=== PATIENT | female | born 1995 | race Caucasian/White ===

== ENCOUNTER 2022-05-25 14:59 | Emergency (ER) | payer OTHER ==
[2022-05-25 15:55] LABS: #Eosinphils 0.3 10x3/uL (0.0-0.5); #Monocytes 0.6 10x3/uL (0.0-1.1); #Neutrophils 5.9 10x3/uL (1.5-8.4); %Basophils 0.2 % (0.0-2.0); %Eosinophils 3.6 % (0.0-6.0); %Lymphocytes 23.6 % (18.0-47.0); %Monocytes 6.9 % (0.0-10.0); %Neutrophils 64.9 % (40.0-75.0); Hemoglobin 11.1 g/dL (12.0-15.5); Mean Corpuscular HGB CONC 33.3 g/dL (32.0-36.0); Mean Corpuscular Hemoglobin 28.9 pg (27.0-33.0); Mean Corpuscular Volume 86.7 fl (81.6-98.3); Mean Platelet Volume 11.8 fl (7.4-10.4); Platelet Count 177 10x3/uL (150-450); RBC Distribution Width 12.9 % (11.5-14.5); Red Blood Cell (RBC) Count 3.84 10x6/uL (3.90-5.03)
[2022-05-25 16:15] LABS: ALT (SGPT) 9 U/L (8-55); AST (SGOT) 14 U/L (5-34); Albumin 3.6 g/dL (3.5-5.0); Alkaline Phosphatase 59 U/L (40-110); Anion Gap 13 mmol/L (10-20); BUN (Urea Nitrogen) 6 mg/dL (7.0-18.7); Bilirubin, Total 0.4 mg/dL (0.2-1.2); Calc. Creatinine Clearance 0 mL/min (70-130); Calcium 8.7 mg/dL (7.8-10.44); Carbon Dioxide 19 mmol/L (22-29); Chloride 109 mmol/L (98-107); Estimated GFR 128; Globulin 2.2 g/dL (2.4-3.5); Glucose 83 mg/dL (70-105); Potassium 4.1 mmol/L (3.5-5.1); Protein, Total 5.8 g/dL (6.0-8.3); Sodium 137 mmol/L (136-145)
[2022-05-25 18:06] LABS: Bilirubin Neg (Negative); Blood, Urine Negative (Negative); Clarity Slightly Cloudy (Clear); Glucose, Urine (Dipstick) Normal (Negative); Ketone, Urine Negative (Negative); Leukocyte 500 (Negative); Nitrite Negative (Negative); Protein, Urine (Dipstick) Negative (Neg-Trace); Specific Gravity, Urine 1.005 (1.005-1.030)
[2022-05-25 18:28] LABS: RBC/HPF 0-3 HPF (0-3)
[2022-05-25 18:29] LABS: Bacteria/HPF 1+ HPF (None Seen)
== END 2022-05-25 19:36 | disposition home or self-care (01) ==
LOC: CSHERS 14:59
DX: N39.0 Urinary tract infection, site not specified (principal); I10 Essential (primary) hypertension; Z79.82 Long term (current) use of aspirin
CPT/HCPCS: 36415; 80053; 81003; 81015; 85025; 87086; 96360

== ENCOUNTER 2022-05-28 13:44 | Emergency (ER) | payer MEDICAID, OTHER ==
[2022-05-28] MEDS ORDERED: Tetracaine 0.5% PF 4 ML BOT ONE (14:48)
[2022-05-28] MEDS ORDERED: Fluorescein Opthalmic Strip ONE (14:48)
== END 2022-05-28 15:16 | disposition home or self-care (01) ==
LOC: CSHERS 13:44
DX: H10.9 Unspecified conjunctivitis (principal); I10 Essential (primary) hypertension
CPT/HCPCS: 99282

== ENCOUNTER 2022-06-16 19:38 | Emergency (ER) | payer MEDICAID, OTHER ==
[2022-06-16] MEDS ORDERED: Metoclopramide HCl 10 MG/2 ML VIAL ONE (20:50)
[2022-06-16] MEDS ORDERED: Magnesium 2 GM/50 ML BAG (IN WATER) ONE (20:50)
[2022-06-16] MEDS ORDERED: Acetaminophen 500 MG TAB ONE (20:50)
[2022-06-16 21:00] LABS: Bilirubin Neg (Negative); Blood, Urine Negative (Negative); Clarity Slightly Cloudy (Clear); Glucose, Urine (Dipstick) Normal (Negative); Ketone, Urine Negative (Negative); Leukocyte 500 (Negative); Nitrite Negative (Negative); Protein, Urine (Dipstick) Negative (Neg-Trace)
[2022-06-16 21:09] LABS: Bacteria/HPF Rare-Few HPF (None Seen); RBC/HPF 0-3 HPF (0-3); Squamous Epithelial 0-3 HPF (0-3)
[2022-06-16 21:43] LABS: #Eosinphils 0.2 10x3/uL (0.0-0.5); #Monocytes 0.6 10x3/uL (0.0-1.1); #Neutrophils 5.9 10x3/uL (1.5-8.4); %Basophils 0.2 % (0.0-2.0); %Eosinophils 1.8 % (0.0-6.0); %Lymphocytes 19.4 % (18.0-47.0); %Monocytes 6.9 % (0.0-10.0); %Neutrophils 70.7 % (40.0-75.0); Hemoglobin 11.4 g/dL (12.0-15.5); Mean Corpuscular Hemoglobin 30.2 pg (27.0-33.0); Mean Corpuscular Volume 88.6 fl (81.6-98.3); Mean Platelet Volume 11.8 fl (7.4-10.4); Platelet Count 145 10x3/uL (150-450); Red Blood Cell (RBC) Count 3.78 10x6/uL (3.90-5.03); White Blood Cell (WBC) Count 8.4 10x3/uL (3.5-10.5)
[2022-06-16 21:59] LABS: INR-International Normal Ratio 0.9; PTT 22.2 sec (22.0-33.0); Prothrombin Time 9.4 sec (9.5-12.1)
[2022-06-16 22:01] LABS: ALT (SGPT) 9 U/L (8-55); AST (SGOT) 17 U/L (5-34); Albumin 3.5 g/dL (3.5-5.0); Alkaline Phosphatase 84 U/L (40-110); Anion Gap 14 mmol/L (10-20); BUN (Urea Nitrogen) 5 mg/dL (7.0-18.7); Bilirubin, Total 0.2 mg/dL (0.2-1.2); Calc. Creatinine Clearance 0 mL/min (70-130); Calcium 9.2 mg/dL (7.8-10.44); Carbon Dioxide 17 mmol/L (22-29); Chloride 106 mmol/L (98-107); Estimated GFR 128; Globulin 2.8 g/dL (2.4-3.5); Glucose 83 mg/dL (70-105); Protein, Total 6.3 g/dL (6.0-8.3); Sodium 133 mmol/L (136-145)
== END 2022-06-16 22:27 | disposition home or self-care (01) ==
LOC: CSHERS 19:38
DX: O99.891 Other specified diseases and conditions complicating pregnancy (principal); R51.9 Headache, unspecified; O10.912 Unspecified pre-existing hypertension complicating pregnancy, second trimester; Z3A.23 23 weeks gestation of pregnancy
CPT/HCPCS: 36415; 80053; 81003; 81015; 85025; 85610; 85730; 96365; 96367; J2765; J3475

== ENCOUNTER 2022-06-20 10:58 | Emergency (ER) | payer MEDICAID, OTHER ==
[2022-06-20 12:41] LABS: SARS-CoV-2 NAA Rapid Test Not Detected (NotDetected)
== END 2022-06-20 14:06 | disposition home or self-care (01) ==
LOC: CSHERS 10:58
DX: J02.9 Acute pharyngitis, unspecified (principal); J06.9 Acute upper respiratory infection, unspecified; I10 Essential (primary) hypertension; Z20.822 Contact with and (suspected) exposure to COVID-19
CPT/HCPCS: 71045

== ENCOUNTER 2022-06-23 16:40 | Day surgery (SDC) | payer OTHER ==
[2022-06-23] MEDS ORDERED: hydrALAZINE 20 MG/ML VIAL SLOW IVP PRN (19:15)
[2022-06-23 20:23] VITALS: BMI 29.4
[2022-06-23] MEDS ORDERED: Lactated Ringer's 1,000 ML IV SCH (20:30)
[2022-06-23] MEDS ORDERED: Acetaminophen 325 MG TAB PO SCH (20:30)
[2022-06-23 20:35] LABS: Bilirubin Neg (Negative); Blood, Urine Negative (Negative); Clarity Clear (Clear); Glucose, Urine (Dipstick) Normal (Negative); Ketone, Urine 50 mg/dL (Negative); Leukocyte 25 (Negative); Nitrite Negative (Negative); Protein, Urine (Dipstick) Negative (Neg-Trace); Specific Gravity, Urine 1.015 (1.005-1.030)
[2022-06-23] MEDS ORDERED: Famotidine/PF 20 mg/2ml Vial SLOW IVP SCH (20:45)
[2022-06-23 20:57] LABS: Bacteria/HPF 1+ HPF (None Seen); CAUTI Indications for Culture Pregnancy; RBC/HPF 0-3 HPF (0-3); Squamous Epithelial 0-3 HPF (0-3); Transitional Epithelial 0-3 HPF (None Seen); WBC/HPF 0-3 HPF (0-3)
[2022-06-23 21:00] LABS: Urine Culture Reflex Yes Yes
[2022-06-23 21:41] LABS: #Eosinphils 0.5 10x3/uL (0.0-0.5); #Monocytes 0.7 10x3/uL (0.0-1.1); #Neutrophils 6.5 10x3/uL (1.5-8.4); %Basophils 0.4 % (0.0-2.0); %Lymphocytes 25.9 % (18.0-47.0); %Monocytes 6.1 % (0.0-10.0); %Neutrophils 60.9 % (40.0-75.0); Hemoglobin 11.7 g/dL (12.0-15.5); Mean Corpuscular HGB CONC 34.9 g/dL (32.0-36.0); Mean Corpuscular Hemoglobin 30.2 pg (27.0-33.0); Mean Corpuscular Volume 86.6 fl (81.6-98.3); Mean Platelet Volume 10.6 fl (7.4-10.4); Platelet Count 217 10x3/uL (150-450); RBC Distribution Width 12.8 % (11.5-14.5); Red Blood Cell (RBC) Count 3.87 10x6/uL (3.90-5.03); White Blood Cell (WBC) Count 10.6 10x3/uL (3.5-10.5)
[2022-06-23 22:03] LABS: ALT (SGPT) 15 U/L (8-55); AST (SGOT) 18 U/L (5-34); Albumin 3.6 g/dL (3.5-5.0); Alkaline Phosphatase 97 U/L (40-110); Anion Gap 14 mmol/L (10-20); BUN (Urea Nitrogen) 7 mg/dL (7.0-18.7); Bilirubin, Total 0.4 mg/dL (0.2-1.2); Calc. Creatinine Clearance 184 mL/min (70-130); Carbon Dioxide 20 mmol/L (22-29); Chloride 105 mmol/L (98-107); Estimated GFR 131; Globulin 2.9 g/dL (2.4-3.5); Glucose 71 mg/dL (70-105); Lipase 5 U/L (8-78); Potassium 3.9 mmol/L (3.5-5.1); Protein, Total 6.5 g/dL (6.0-8.3); Sodium 135 mmol/L (136-145)
[2022-06-23] MEDS ORDERED: Lidocaine 2% Viscous Solution 10 ML, Aluminum & Magnesium Hydroxide 30 ML SSW SCH (23:15)
== END 2022-06-23 23:58 | disposition home or self-care (01) ==
LOC: CSHLD/OP 16:40
PROVIDERS: ATTEND Obstetrics & Gynecology
DX: O47.02 False labor before 37 completed weeks of gestation, second trimester (principal); O26.892 Other specified pregnancy related conditions, second trimester; O46.92 Antepartum hemorrhage, unspecified, second trimester; R10.11 Right upper quadrant pain; O26.852 Spotting complicating pregnancy, second trimester; O13.2 Gestational [pregnancy-induced] hypertension without significant proteinuria, second trimester; O14.22 HELLP syndrome (HELLP), second trimester; O99.342 Other mental disorders complicating pregnancy, second trimester; F41.9 Anxiety disorder, unspecified; F32.A Depression, unspecified; O99.352 Diseases of the nervous system complicating pregnancy, second trimester; G80.9 Cerebral palsy, unspecified; Z3A.23 23 weeks gestation of pregnancy; Z79.899 Other long term (current) drug therapy; Z87.59 Personal history of other complications of pregnancy, childbirth and the puerperium; Z79.82 Long term (current) use of aspirin
CPT/HCPCS: 36415; 76705; 76815; 80053; 81001; 83690; 85025; 87086; 99284

== ENCOUNTER 2022-07-09 12:27 | Day surgery (SDC) | payer MEDICAID, OTHER, SELFPAY ==
[2022-07-09 13:16] VITALS: BMI 29.4
[2022-07-09] MEDS ORDERED: hydrALAZINE 20 MG/ML VIAL SLOW IVP PRN (13:56)
[2022-07-09 18:03] LABS: Fetal Membranes Rupture No Membranes Rupture (No Rupture)
== END 2022-07-09 19:10 | disposition home health service (06) ==
LOC: CSHLD/OP 12:27
PROVIDERS: ATTEND Obstetrics & Gynecology
DX: O47.02 False labor before 37 completed weeks of gestation, second trimester (principal); O10.012 Pre-existing essential hypertension complicating pregnancy, second trimester; O99.342 Other mental disorders complicating pregnancy, second trimester; F41.9 Anxiety disorder, unspecified; O99.713 Diseases of the skin and subcutaneous tissue complicating pregnancy, third trimester; F32.A Depression, unspecified; L88 Pyoderma gangrenosum; Z87.59 Personal history of other complications of pregnancy, childbirth and the puerperium; Z87.51 Personal history of pre-term labor; Z3A.25 25 weeks gestation of pregnancy; Z79.899 Other long term (current) drug therapy
CPT/HCPCS: 76815; 84112; 99283

== ENCOUNTER 2022-08-14 21:03 | Day surgery (SDC) | payer OTHER ==
[2022-08-14 21:31] VITALS: BMI 31.2
[2022-08-14] MEDS ORDERED: hydrALAZINE 20 MG/ML VIAL SLOW IVP PRN (21:33)
[2022-08-14] MEDS ORDERED: Promethazine HCl 25 MG/ML VIAL IM PRN (21:33)
[2022-08-14 22:05] LABS: Bilirubin Neg (Negative); Blood, Urine Negative (Negative); Clarity Clear (Clear); Glucose, Urine (Dipstick) Normal (Negative); Ketone, Urine Negative (Negative); Leukocyte Negative (Negative); Nitrite Negative (Negative); Protein, Urine (Dipstick) 15 mg/dl (Neg-Trace)
[2022-08-14 22:24] LABS: RBC/HPF 0-3 HPF (0-3)
[2022-08-14 22:25] LABS: Bacteria/HPF 1+ HPF (None Seen); CAUTI Indications for Culture Pregnancy; WBC/HPF 0-3 HPF (0-3)
[2022-08-14 22:26] LABS: Urine Culture Reflex Yes Yes
[2022-08-14] MEDS ORDERED: Cyclobenzaprine 10 MG TAB PO SCH (23:00)
== END 2022-08-14 23:16 | disposition home or self-care (01) ==
LOC: CSHLD/OP 21:03
PROVIDERS: ATTEND Obstetrics & Gynecology
DX: O47.03 False labor before 37 completed weeks of gestation, third trimester (principal); Z87.59 Personal history of other complications of pregnancy, childbirth and the puerperium; Z79.899 Other long term (current) drug therapy; Z3A.30 30 weeks gestation of pregnancy
CPT/HCPCS: 51701; 81001; 87086; 87480; 87510; 87660; 96372; 99284; J2550

== ENCOUNTER 2022-09-01 17:01 | Observation (INO) | payer OTHER ==
[2022-09-01 17:37] VITALS: BMI 31.6
[2022-09-01] MEDS ORDERED: hydrALAZINE 20 MG/ML VIAL SLOW IVP PRN ×2 (18:04→19:44)
[2022-09-01] MEDS ORDERED: Ondansetron PF 4 MG/2 ML Vial IVP SCH (18:15)
[2022-09-01] MEDS ORDERED: Fioricet 325/50/40 mg Tablet PO SCH (18:15)
[2022-09-01] MEDS: Lactated Ringer's 1,000 ML IV SCH (18:25)
[2022-09-01 18:53] LABS: #Eosinphils 0.5 10x3/uL (0.0-0.5); #Monocytes 0.7 10x3/uL (0.0-1.1); #Neutrophils 6.6 10x3/uL (1.5-8.4); %Basophils 0.2 % (0.0-2.0); %Eosinophils 4.8 % (0.0-6.0); %Lymphocytes 23.6 % (18.0-47.0); %Monocytes 7.1 % (0.0-10.0); %Neutrophils 63.4 % (40.0-75.0); Hemoglobin 12.4 g/dL (12.0-15.5); Mean Corpuscular HGB CONC 34.9 g/dL (32.0-36.0); Mean Corpuscular Hemoglobin 30.1 pg (27.0-33.0); Mean Corpuscular Volume 86.2 fl (81.6-98.3); Mean Platelet Volume 12.3 fl (7.4-10.4); Platelet Count 226 10x3/uL (150-450); Red Blood Cell (RBC) Count 4.12 10x6/uL (3.90-5.03); White Blood Cell (WBC) Count 10.4 10x3/uL (3.5-10.5)
[2022-09-01 18:54] LABS: Bilirubin Neg (Negative); Blood, Urine Negative (Negative); Clarity Clear (Clear); Glucose, Urine (Dipstick) Normal (Negative); Ketone, Urine Negative (Negative); Leukocyte 500 (Negative); Nitrite Negative (Negative); Protein, Urine (Dipstick) Negative (Neg-Trace); Specific Gravity, Urine 1.025 (1.005-1.030); Urobilinogen Normal mg/dL (Less than 2)
[2022-09-01 19:05] LABS: ALT (SGPT) 8 U/L (8-55); AST (SGOT) 15 U/L (5-34); Albumin 3.4 g/dL (3.5-5.0); Alkaline Phosphatase 176 U/L (40-110); Anion Gap 14 mmol/L (10-20); BUN (Urea Nitrogen) 9 mg/dL (7.0-18.7); Bilirubin, Total 0.2 mg/dL (0.2-1.2); Calc. Creatinine Clearance 161 mL/min (70-130); Calcium 9.7 mg/dL (7.8-10.44); Carbon Dioxide 20 mmol/L (22-29); Chloride 108 mmol/L (98-107); Estimated GFR 125; Globulin 3.1 g/dL (2.4-3.5); Glucose 84 mg/dL (70-105); Potassium 4.2 mmol/L (3.5-5.1); Protein, Total 6.5 g/dL (6.0-8.3); Sodium 138 mmol/L (136-145)
[2022-09-01 19:39] LABS: Bacteria/HPF 3+ HPF (None Seen); Mucous/LPF 1+ LPF (<2+); RBC/HPF 0-3 HPF (0-3)
[2022-09-01] MEDS ORDERED: Acetaminophen 500 MG TAB PO PRN (19:44)
[2022-09-01] MEDS ORDERED: Misoprostol 200 MCG TAB PR PRN (19:44)
[2022-09-01] MEDS ORDERED: Docusate 100 MG CAP PO PRN (19:44)
[2022-09-01] MEDS ORDERED: Ondansetron PF 4 MG/2 ML Vial IVP PRN (19:44)
[2022-09-01] MEDS ORDERED: Tranexamic Acid 1,000 MG/10 ML VIAL IVP PRN (19:44)
[2022-09-01] MEDS ORDERED: Carboprost 250 MCG/ML AMP IM PRN (19:44)
[2022-09-01] MEDS ORDERED: Diphenoxylate HCl/Atropine Tablet PO PRN (19:44)
[2022-09-01] MEDS ORDERED: NS w/ Oxytocin 30 units 500 ML IV SCH (19:45)
[2022-09-01] MEDS ORDERED: Calcium Gluc 4.6 MEQ/10 ML (100 MG/ML) SLOW IVP PRN (19:47)
[2022-09-01] MEDS ORDERED: Lorazepam 2 MG/ML VIAL SLOW IVP PRN (19:47)
[2022-09-01] MEDS ORDERED: Labetalol HCl 100 MG/20 ML VIAL SLOW IVP PRN ×3 (19:47)
[2022-09-01] MEDS: Labetalol HCl 100 MG TAB PO SCH (20:11)
[2022-09-01] MEDS: Betamet Acet/Betamet Na Ph 30 MG/5 ML VIAL IM SCH (20:12)
[2022-09-01 20:49] LABS: Hep B Surf Ag - L&D Non-Reactive S/CO (NonReactive)
[2022-09-01 20:50] LABS: Syphilis Antibody Nonreactive (Nonreactive); Syphilis Antibody Index 0.06 S/CO (<1.00 Non-Reactive)
[2022-09-01 22:52] LABS: Uric Acid 5.3 mg/dL (2.6-6.0)
[2022-09-02 03:57] LABS: ALT (SGPT) 8 U/L (8-55); AST (SGOT) 14 U/L (5-34); Albumin 3.2 g/dL (3.5-5.0); Alkaline Phosphatase 170 U/L (40-110); Anion Gap 16 mmol/L (10-20); BUN (Urea Nitrogen) 10 mg/dL (7.0-18.7); Bilirubin, Total 0.2 mg/dL (0.2-1.2); Calc. Creatinine Clearance 128 mL/min (70-130); Calcium 9.4 mg/dL (7.8-10.44); Carbon Dioxide 18 mmol/L (22-29); Chloride 106 mmol/L (98-107); Estimated GFR 100; Globulin 2.8 g/dL (2.4-3.5); Glucose 165 mg/dL (70-105); Sodium 136 mmol/L (136-145)
[2022-09-02 04:12] LABS: #Monocytes 0.1 10x3/uL (0.0-1.1); #Neutrophils 10.6 10x3/uL (1.5-8.4); %Basophils 0.1 % (0.0-2.0); %Eosinophils 0.2 % (0.0-6.0); %Lymphocytes 7.9 % (18.0-47.0); %Monocytes 0.9 % (0.0-10.0); %Neutrophils 89.9 % (40.0-75.0); Hemoglobin 11.4 g/dL (12.0-15.5); Mean Corpuscular HGB CONC 33.8 g/dL (32.0-36.0); Mean Corpuscular Volume 88.7 fl (81.6-98.3); Mean Platelet Volume 12.5 fl (7.4-10.4); Platelet Count 190 10x3/uL (150-450); White Blood Cell (WBC) Count 11.7 10x3/uL (3.5-10.5)
[2022-09-02] MEDS: Lactated Ringer's 1,000 ML IV SCH (07:23)
[2022-09-02] MEDS: Labetalol HCl 100 MG TAB PO SCH ×2 (08:15→19:53)
[2022-09-02 08:16] VITALS: BP 138/91
[2022-09-02 09:39] LABS: Amphetamine Not Detected (NotDetected); Barbiturates Screen Not Detected (NotDetected); Benzodiazepine Screen Not Detected (NotDetected); Cocaine Metabolite Screen Not Detected (NotDetected); Methadone Not Detected (NotDetected); Methamphetamine Not Detected (NotDetected); Opiate Screen Not Detected (NotDetected); Oxycodone Screen Not Detected (NotDetected); Phencyclidine (PCP) Not Detected (NotDetected); THC/Cannabinoid Screen Not Detected (NotDetected); Tricyclic Screen Not Detected (NotDetected)
[2022-09-02] MEDS ORDERED: Fioricet 325/50/40 mg Tablet PO SCH (11:30)
[2022-09-02] MEDS ORDERED: Famotidine/PF 20 mg/2ml Vial SLOW IVP PRN (14:27)
[2022-09-02] MEDS: Betamet Acet/Betamet Na Ph 30 MG/5 ML VIAL IM SCH (19:54)
== END 2022-09-02 20:10 | disposition home or self-care (01) ==
LOC: CSHLD/OP 17:01 → INTOOBSV 20:00 → CSHLD 20:00
PROVIDERS: ADMIT Obstetrics & Gynecology; ATTEND Obstetrics & Gynecology
DX: O13.3 Gestational [pregnancy-induced] hypertension without significant proteinuria, third trimester (principal); Z3A.33 33 weeks gestation of pregnancy; Z79.82 Long term (current) use of aspirin
CPT/HCPCS: 36415; 59025; 80053; 80306; 81001; 82570; 84156; 84550; 85025; 86780; 86850; 86900; 86901; 87340; 96360; 96372; 96374; 96375; 96376; 99283; G0378; J0360; J0702; J2405; J7120

== ENCOUNTER 2022-09-04 09:44 | Inpatient (IN) | payer OTHER ==
[2022-09-04] MEDS ORDERED: Acetaminophen 500 MG TAB ONE (09:52)
[2022-09-04] MEDS ORDERED: Labetalol HCl 100 MG/20 ML VIAL ONE (09:52)
[2022-09-04 10:31] LABS: #Basophils 0.1 10x3/uL (0.0-0.2); #Eosinphils 0.1 10x3/uL (0.0-0.5); #Monocytes 1.1 10x3/uL (0.0-1.1); #Neutrophils 9.8 10x3/uL (1.5-8.4); %Basophils 0.5 % (0.0-2.0); %Eosinophils 0.5 % (0.0-6.0); %Monocytes 7.7 % (0.0-10.0); %Neutrophils 66.6 % (40.0-75.0); Hemoglobin 11.1 g/dL (12.0-15.5); Mean Corpuscular HGB CONC 33.4 g/dL (32.0-36.0); Mean Corpuscular Hemoglobin 30.3 pg (27.0-33.0); Mean Corpuscular Volume 90.7 fl (81.6-98.3); Mean Platelet Volume 12.8 fl (7.4-10.4); Platelet Count 195 10x3/uL (150-450); RBC Distribution Width 13.1 % (11.5-14.5); Red Blood Cell (RBC) Count 3.66 10x6/uL (3.90-5.03); White Blood Cell (WBC) Count 14.7 10x3/uL (3.5-10.5)
[2022-09-04 10:50] LABS: ALT (SGPT) 14 U/L (8-55); AST (SGOT) 27 U/L (5-34); Albumin 3.3 g/dL (3.5-5.0); Alkaline Phosphatase 177 U/L (40-110); Anion Gap 16 mmol/L (10-20); BUN (Urea Nitrogen) 10 mg/dL (7.0-18.7); Bilirubin, Total 0.2 mg/dL (0.2-1.2); CK (CPK) 19 U/L (29-168); Calc. Creatinine Clearance 0 mL/min (70-130); Calcium 8.5 mg/dL (7.8-10.44); Carbon Dioxide 15 mmol/L (22-29); Chloride 110 mmol/L (98-107); Estimated GFR 126; Globulin 2.9 g/dL (2.4-3.5); Glucose 87 mg/dL (70-105); Potassium 4.4 mmol/L (3.5-5.1); Protein, Total 6.2 g/dL (6.0-8.3); Sodium 137 mmol/L (136-145)
[2022-09-04] MEDS ORDERED: Magnesium 2 GM/50 ML BAG (IN WATER) ONE (11:01)
[2022-09-04] MEDS ORDERED: Promethazine HCl 25 MG/ML VIAL IM PRN ×2 (12:11→16:01)
[2022-09-04] MEDS ORDERED: Ondansetron PF 4 MG/2 ML Vial IVP PRN ×2 (12:11→16:01)
[2022-09-04] MEDS ORDERED: Lorazepam 2 MG/ML VIAL SLOW IVP PRN (12:11)
[2022-09-04] MEDS ORDERED: Labetalol HCl 100 MG/20 ML VIAL SLOW IVP PRN ×3 (12:11)
[2022-09-04] MEDS ORDERED: Calcium Gluc 4.6 MEQ/10 ML (100 MG/ML) SLOW IVP PRN (12:11)
[2022-09-04] MEDS ORDERED: Carboprost 250 MCG/ML AMP IM PRN (12:11)
[2022-09-04] MEDS ORDERED: Misoprostol 200 MCG TAB PR PRN (12:11)
[2022-09-04] MEDS ORDERED: hydrALAZINE 20 MG/ML VIAL SLOW IVP PRN ×2 (12:11)
[2022-09-04] MEDS ORDERED: Lactated Ringer's 1,000 ML IV SCH (12:15)
[2022-09-04] MEDS ORDERED: Magnesium Sulfate 20 gm/500 ml 20 GM/500 ML BAG IVPB SCH (12:15)
[2022-09-04] MEDS ORDERED: NS w/ Oxytocin 30 units 500 ML IV SCH (12:15)
[2022-09-04 12:52] LABS: Creatinine, Urine 32.49 mg/dL (47-110); Protein, Urine Random Quant Less than 10 mg/dL (1-14)
[2022-09-04 13:03] VITALS: BMI 34.7
[2022-09-04 14:09] LABS: Acetaminophen 18 mcg/mL (10.0-30.0); Alcohol Less than 10.0 mg/dL (Less than 10); Magnesium 1.8 mg/dL (1.6-2.6); Salicylate Less than 8.0 mg/dL (15.0-30.0)
[2022-09-04] MEDS ORDERED: Famotidine/PF 20 mg/2ml Vial ONE (14:31)
[2022-09-04] MEDS ORDERED: CEFAZOLIN 2 GM VIAL ONE (14:31)
[2022-09-04] MEDS ORDERED: PHENYLEPHRINE-NS 100 MCG/ML 10 ML SYRINGE ONE (15:15)
[2022-09-04] MEDS ORDERED: Succinylcholine 200 MG/10 ml SYRINGE FS ONE (15:15)
[2022-09-04] MEDS ORDERED: PROPOFOL 20 ML ONE (15:15)
[2022-09-04] MEDS ORDERED: Fentanyl 250 MCG/5 ML VIAL ONE (15:15)
[2022-09-04] MEDS ORDERED: Ondansetron PF 4 MG/2 ML Vial ONE (15:18)
[2022-09-04] MEDS ORDERED: Oxytocin 10 UNITS/ML VIAL ONE (15:18)
[2022-09-04] MEDS ORDERED: Morphine PF 10 MG/10 ML VIAL ONE (15:24)
[2022-09-04] MEDS ORDERED: Midazolam HCl 2 mg/2 ml Vial ONE (15:35)
[2022-09-04] MEDS ORDERED: Ketamine 50 MG/ML (10ML VIAL) ONE (15:35)
[2022-09-04 15:50] LABS: Syphilis Antibody Nonreactive (Nonreactive); Syphilis Antibody Index 0.04 S/CO (<1.00 Non-Reactive)
[2022-09-04 15:51] LABS: HBSAg Index 0.19 S/CO (0-0.99); Hep B Surf Ag - L&D Non-Reactive S/CO (NonReactive)
[2022-09-04] MEDS ORDERED: Ondansetron HCl/PF 4 MG/2 ML Vial IVP PRN (16:01)
[2022-09-04] MEDS ORDERED: Naloxone HCl 0.4 mg/ml Vial IV PRN (16:01)
[2022-09-04] MEDS ORDERED: Meperidine HCl/PF 25 MG/ML VIAL SLOW IVP PRN (16:01)
[2022-09-04] MEDS ORDERED: Naloxone HCl 0.4 mg/ml Vial IVP PRN ×2 (16:01)
[2022-09-04] MEDS ORDERED: Moisturizing Cream (Eucerin) 113 GM JAR TOP PRN (16:01)
[2022-09-04] MEDS ORDERED: Fentanyl 100 MCG/2 ML VIAL SLOW IVP PRN (16:01)
[2022-09-04] MEDS ORDERED: Promethazine HCl 25 MG SUPP PR PRN (16:01)
[2022-09-04 16:13] LABS: RapidComm Collect By CBN
[2022-09-04 16:14] LABS: RapidComm Collect By CBN; pH (Cord, venous) 7.338 (7.250-7.350)
[2022-09-04] MEDS ORDERED: Ketorolac Tromethamine 30 MG/ML VIAL IVP SCH (16:15)
[2022-09-04] MEDS ORDERED: Communication Order-Pharmacy FS SCH (16:15)
[2022-09-04] MEDS ORDERED: Phytonadione Neonatal 1 MG/0.5 ML AMP ONE (16:16)
[2022-09-04] MEDS ORDERED: Erythromycin Base 0.5% Oint 1 GM TUBE ONE (16:16)
[2022-09-04] MEDS ORDERED: Meperidine HCl/PF 25 MG/ML VIAL ONE (17:24)
[2022-09-04 17:54] LABS: Uric Acid 5.3 mg/dL (2.6-6.0)
[2022-09-04] MEDS: Ketorolac Tromethamine 30 MG/ML VIAL IVP PRN (18:47)
[2022-09-04] MEDS: diphenhydrAMINE 50 MG/ML VIAL IVP PRN ×2 (18:48→23:41)
[2022-09-04 20:33] LABS: Bilirubin Neg (Negative); Blood, Urine 10 (Negative); Clarity Clear (Clear); Glucose, Urine (Dipstick) Normal (Negative); Ketone, Urine Negative (Negative); Leukocyte 25 (Negative); Nitrite Negative (Negative); Protein, Urine (Dipstick) Negative (Neg-Trace); Urobilinogen Normal mg/dL (Less than 2)
[2022-09-04 20:40] LABS: Amphetamine Not Detected (NotDetected); Barbiturates Screen Detected (NotDetected); Benzodiazepine Screen Not Detected (NotDetected); Cocaine Metabolite Screen Not Detected (NotDetected); Methadone Not Detected (NotDetected); Methamphetamine Not Detected (NotDetected); Opiate Screen Not Detected (NotDetected); Oxycodone Screen Not Detected (NotDetected); Phencyclidine (PCP) Not Detected (NotDetected); THC/Cannabinoid Screen Not Detected (NotDetected); Tricyclic Screen Not Detected (NotDetected)
[2022-09-04 20:51] LABS: Bacteria/HPF None Seen HPF (None Seen); RBC/HPF 0-3 HPF (0-3); Squamous Epithelial 0-3 HPF (0-3)
[2022-09-05] MEDS: Ketorolac Tromethamine 30 MG/ML VIAL IVP PRN ×2 (00:42→12:30)
[2022-09-05] MEDS: diphenhydrAMINE 50 MG/ML VIAL IVP PRN (04:59)
[2022-09-05] MEDS ORDERED: Bisacodyl 10 MG SUPP PR PRN (05:37)
[2022-09-05] MEDS ORDERED: Ondansetron PF 4 MG/2 ML Vial IVP PRN (05:37)
[2022-09-05] MEDS ORDERED: Lorazepam 2 MG/ML VIAL SLOW IVP PRN (05:37)
[2022-09-05] MEDS ORDERED: hydrALAZINE 20 MG/ML VIAL SLOW IVP PRN (05:37)
[2022-09-05] MEDS ORDERED: Boostrix 0.5 ML (Tdap) VIAL (>/=7 yrs of age) IM ONE (05:37)
[2022-09-05] MEDS ORDERED: Promethazine HCl 25 MG/ML VIAL IM PRN (05:37)
[2022-09-05] MEDS ORDERED: Misoprostol 200 MCG TAB PR PRN (05:37)
[2022-09-05] MEDS ORDERED: NS w/ Oxytocin 30 units 500 ML IV SCH (05:37)
[2022-09-05] MEDS ORDERED: Calcium Gluc 4.6 MEQ/10 ML (100 MG/ML) SLOW IVP PRN (05:37)
[2022-09-05] MEDS ORDERED: Magnesium Sulfate 20 gm/500 ml 20 GM/500 ML BAG IVPB SCH (05:37)
[2022-09-05] MEDS ORDERED: Ferrous Sulfate 325 MG TAB PO SCH (06:00)
[2022-09-05] MEDS: HYDROcodone/Acetaminophen 7.5/325 mg Tablet PO PRN ×4 (06:08→20:22)
[2022-09-05] MEDS ORDERED: Meperidine HCl/PF 25 MG/ML VIAL ONE (12:51)
[2022-09-05] MEDS: Meperidine HCl/PF 25 MG/ML VIAL SLOW IVP PRN ×2 (13:00→23:55)
[2022-09-05] MEDS: Labetalol HCl 100 MG TAB PO SCH ×2 (13:38→23:48)
[2022-09-05] MEDS: Lactated Ringer's 1,000 ML IV SCH ×2 (17:09→23:48)
[2022-09-05] MEDS: Prenatal Vitamin 1 TAB PO SCH (17:10)
[2022-09-05] MEDS: Ferrous Sulfate 325 MG TAB PO SCH ×2 (17:10→23:48)
[2022-09-05] MEDS: Aspirin 81 mg Enteric Coated Tablet PO SCH (17:10)
[2022-09-05 19:08] LABS: HIV (1/2) Antibody/Antigen Non-Reactive (NonReactive); HIV 1/2 INDEX 0.05 S/CO (<1.00)
[2022-09-05] MEDS: Ibuprofen 800 MG TAB PO SCH (22:01)
[2022-09-06] MEDS: HYDROcodone/Acetaminophen 7.5/325 mg Tablet PO PRN ×4 (03:27→18:10)
[2022-09-06 03:57] LABS: #Eosinphils 0.1 10x3/uL (0.0-0.5); #Monocytes 0.7 10x3/uL (0.0-1.1); #Neutrophils 10.7 10x3/uL (1.5-8.4); %Basophils 0.1 % (0.0-2.0); %Eosinophils 0.4 % (0.0-6.0); %Lymphocytes 13.4 % (18.0-47.0); %Monocytes 5.4 % (0.0-10.0); %Neutrophils 79.9 % (40.0-75.0); Hemoglobin 9.6 g/dL (12.0-15.5); Mean Corpuscular HGB CONC 33.4 g/dL (32.0-36.0); Mean Corpuscular Hemoglobin 30.2 pg (27.0-33.0); Mean Corpuscular Volume 90.3 fl (81.6-98.3); Mean Platelet Volume 12.7 fl (7.4-10.4); Platelet Count 170 10x3/uL (150-450); Red Blood Cell (RBC) Count 3.18 10x6/uL (3.90-5.03); White Blood Cell (WBC) Count 13.4 10x3/uL (3.5-10.5)
[2022-09-06] MEDS: Lactated Ringer's 1,000 ML IV SCH ×2 (06:11→06:58)
[2022-09-06] MEDS: Ibuprofen 800 MG TAB PO SCH ×3 (06:12→21:07)
[2022-09-06] MEDS: Aspirin 81 mg Enteric Coated Tablet PO SCH (07:49)
[2022-09-06] MEDS: Ferrous Sulfate 325 MG TAB PO SCH ×2 (07:49→21:09)
[2022-09-06] MEDS: Labetalol HCl 100 MG TAB PO SCH ×2 (07:49→21:09)
[2022-09-06] MEDS: Prenatal Vitamin 1 TAB PO SCH (07:49)
[2022-09-06] MEDS ORDERED: Docusate 100 MG CAP PO PRN (09:07)
[2022-09-06] MEDS: Meperidine HCl/PF 25 MG/ML VIAL SLOW IVP PRN (11:18)
[2022-09-06] MEDS: Simethicone Chewable 80 MG TAB PO PRN (14:14)
[2022-09-07] MEDS: Ibuprofen 800 MG TAB PO SCH ×3 (06:10→22:38)
[2022-09-07] MEDS: HYDROcodone/Acetaminophen 7.5/325 mg Tablet PO PRN (07:52)
[2022-09-07] MEDS: Ferrous Sulfate 325 MG TAB PO SCH ×2 (07:56→21:08)
[2022-09-07] MEDS: Aspirin 81 mg Enteric Coated Tablet PO SCH (07:57)
[2022-09-07] MEDS: Prenatal Vitamin 1 TAB PO SCH (07:57)
[2022-09-07] MEDS: Labetalol HCl 100 MG TAB PO SCH ×2 (07:58→22:36)
[2022-09-07] MEDS: Sertraline 25 MG TAB PO SCH (08:16)
[2022-09-07 08:27] LABS: #Eosinphils 0.2 10x3/uL (0.0-0.5); #Neutrophils 13.5 10x3/uL (1.5-8.4); %Basophils 0.1 % (0.0-2.0); %Eosinophils 1.3 % (0.0-6.0); %Lymphocytes 10.1 % (18.0-47.0); %Monocytes 5.9 % (0.0-10.0); %Neutrophils 81.8 % (40.0-75.0); Hemoglobin 9.7 g/dL (12.0-15.5); Mean Corpuscular Hemoglobin 29.5 pg (27.0-33.0); Mean Corpuscular Volume 89.4 fl (81.6-98.3); Mean Platelet Volume 11.4 fl (7.4-10.4); Platelet Count 188 10x3/uL (150-450); RBC Distribution Width 13.2 % (11.5-14.5); Red Blood Cell (RBC) Count 3.29 10x6/uL (3.90-5.03); White Blood Cell (WBC) Count 16.6 10x3/uL (3.5-10.5)
[2022-09-07 08:50] LABS: ALT (SGPT) 9 U/L (8-55); AST (SGOT) 12 U/L (5-34); Albumin 2.8 g/dL (3.5-5.0); Alkaline Phosphatase 128 U/L (40-110); Anion Gap 12 mmol/L (10-20); BUN (Urea Nitrogen) 10 mg/dL (7.0-18.7); Bilirubin, Total 0.4 mg/dL (0.2-1.2); Calc. Creatinine Clearance 204 mL/min (70-130); Calcium 8.7 mg/dL (7.8-10.44); Carbon Dioxide 21 mmol/L (22-29); Chloride 107 mmol/L (98-107); Estimated GFR 126; Globulin 2.9 g/dL (2.4-3.5); Glucose 90 mg/dL (70-105); Potassium 4.2 mmol/L (3.5-5.1); Protein, Total 5.7 g/dL (6.0-8.3); Sodium 136 mmol/L (136-145)
[2022-09-07] MEDS ORDERED: Lorazepam 2 MG/ML VIAL ONE (09:59)
[2022-09-07 10:03] LABS: #Eosinphils 0.3 10x3/uL (0.0-0.5); #Neutrophils 15.7 10x3/uL (1.5-8.4); %Basophils 0.2 % (0.0-2.0); %Eosinophils 1.5 % (0.0-6.0); %Lymphocytes 9.8 % (18.0-47.0); %Monocytes 5.3 % (0.0-10.0); %Neutrophils 82.4 % (40.0-75.0); Hemoglobin 10.4 g/dL (12.0-15.5); Mean Corpuscular HGB CONC 32.6 g/dL (32.0-36.0); Mean Corpuscular Hemoglobin 29.5 pg (27.0-33.0); Mean Corpuscular Volume 90.6 fl (81.6-98.3); Platelet Count 216 10x3/uL (150-450); RBC Distribution Width 13.2 % (11.5-14.5); Red Blood Cell (RBC) Count 3.52 10x6/uL (3.90-5.03); White Blood Cell (WBC) Count 19.1 10x3/uL (3.5-10.5)
[2022-09-07] MEDS ORDERED: Lorazepam 2 MG/ML VIAL SLOW IVP PRN (10:19)
[2022-09-07 10:22] LABS: ALT (SGPT) 10 U/L (8-55); AST (SGOT) 16 U/L (5-34); Alkaline Phosphatase 148 U/L (40-110); Anion Gap 13 mmol/L (10-20); BUN (Urea Nitrogen) 10 mg/dL (7.0-18.7); Bilirubin, Total 0.4 mg/dL (0.2-1.2); Calc. Creatinine Clearance 181 mL/min (70-130); Carbon Dioxide 20 mmol/L (22-29); Chloride 107 mmol/L (98-107); Estimated GFR 121; Glucose 140 mg/dL (70-105); Potassium 4.4 mmol/L (3.5-5.1); Sodium 136 mmol/L (136-145)
[2022-09-07] MEDS ORDERED: Piperacillin/Tazobactam 3.375 GM in Sodium Chloride 0.9% 100 ML IVPB SCH (10:30)
[2022-09-07] MEDS ORDERED: Vancomycin 1.5 GRAM/300 ML BAG 1.5 GM in Premix Bag 1 BAG IVPB SCH (11:00)
[2022-09-07] MEDS ORDERED: diphenhydrAMINE 50 MG/ML VIAL IVP PRN (13:01)
[2022-09-07] MEDS: Simethicone Chewable 80 MG TAB PO PRN (13:32)
[2022-09-07] MEDS ORDERED: Metoclopramide HCl 10 MG/2 ML VIAL IVP SCH (14:00)
[2022-09-07] MEDS ORDERED: Metoclopramide HCl 10 MG TAB PO SCH (17:00)
[2022-09-07] MEDS: traMADol HCl 50 MG TAB PO PRN (17:06)
[2022-09-07] MEDS: Metoclopramide HCl 10 MG TAB PO SCH ×2 (17:07→21:08)
[2022-09-07] MEDS ORDERED: Vancomycin HCl 1 GM in Sodium Chloride 0.9% 250 ML 250 ML IVPB SCH ×2 (19:00→21:00)
[2022-09-07] MEDS: Lactated Ringer's 1,000 ML IV SCH ×3 (20:03→22:38)
[2022-09-07] MEDS ORDERED: Sodium Chloride 0.9% 250 ML 250 ML ONE (22:08)
[2022-09-07] MEDS: Vancomycin HCl 1 GM in Sodium Chloride 0.9% 250 ML 250 ML IVPB SCH (22:33)
[2022-09-08] MEDS: Ibuprofen 800 MG TAB PO SCH ×2 (06:11→14:12)
[2022-09-08] MEDS: Vancomycin HCl 1 GM in Sodium Chloride 0.9% 250 ML 250 ML IVPB SCH (06:12)
[2022-09-08] MEDS: Prenatal Vitamin 1 TAB PO SCH (09:32)
[2022-09-08] MEDS: Sertraline 25 MG TAB PO SCH (09:33)
[2022-09-08] MEDS: Labetalol HCl 100 MG TAB PO SCH (09:33)
[2022-09-08] MEDS: Aspirin 81 mg Enteric Coated Tablet PO SCH (09:33)
[2022-09-08] MEDS: Ferrous Sulfate 325 MG TAB PO SCH (09:33)
[2022-09-08] MEDS: Metoclopramide HCl 10 MG TAB PO SCH ×2 (09:33→12:52)
[2022-09-08] MEDS: traMADol HCl 50 MG TAB PO PRN (09:34)
[2022-09-08 12:04] VITALS: BP 124/65; TEMP 98.1
== END 2022-09-08 14:13 | disposition home or self-care (01) | DRG 786 ==
LOC: CSHERS 09:44 → CSHLD 11:56 → CSHPP 09-05 17:35
PROVIDERS: ADMIT Obstetrics & Gynecology; ATTEND Obstetrics & Gynecology
PROC: 10D00Z1 Extraction of Products of Conception, Low, Open Approach (ICD-10-PCS; principal; 2022-09-04)
PROC: 4A133R1 Monitoring of Arterial Saturation, Peripheral, Percutaneous Approach (ICD-10-PCS; 2022-09-04)
PROC: 3E033VJ Introduction of Other Hormone into Peripheral Vein, Percutaneous Approach (ICD-10-PCS; 2022-09-04)
PROC: 4A00X4Z Measurement of Central Nervous Electrical Activity, External Approach (ICD-10-PCS; 2022-09-07)
DX: O41.03X0 Oligohydramnios, third trimester, not applicable or unspecified (principal); O60.14X0 Preterm labor third trimester with preterm delivery third trimester, not applicable or unspecified; O99.42 Diseases of the circulatory system complicating childbirth; D68.61 Antiphospholipid syndrome; O99.12 Other diseases of the blood and blood-forming organs and certain disorders involving the immune mechanism complicating childbirth; L88 Pyoderma gangrenosum; O11.4 Pre-existing hypertension with pre-eclampsia, complicating childbirth; O34.211 Maternal care for low transverse scar from previous cesarean delivery; O99.344 Other mental disorders complicating childbirth; F41.8 Other specified anxiety disorders; I49.9 Cardiac arrhythmia, unspecified; O32.1XX0 Maternal care for breech presentation, not applicable or unspecified; G80.9 Cerebral palsy, unspecified; O75.89 Other specified complications of labor and delivery; R06.02 Shortness of breath; R20.0 Anesthesia of skin; O90.81 Anemia of the puerperium; D50.8 Other iron deficiency anemias; Z37.0 Single live birth; Z3A.33 33 weeks gestation of pregnancy; Z98.890 Other specified postprocedural states; Z79.82 Long term (current) use of aspirin; Z79.899 Other long term (current) drug therapy
CPT/HCPCS: 36415; 36416; 51702; 71045; 76815; 80053; 80306; 80307; 81001; 82550; 82570; 82805; 83605; 83615; 83735; 83880; 84156; 84443; 84484; 84550; 85025; 85379; 86140; 86762; 86780; 86850; 86900; 86901; 87040; 87340; 87389; 93005; 93010; 95816; 95819; 95957; 96365; 96375; 96376; J1200; J1650; J1885; J2060; J2175; J2250; J2274; J2405; J2543; J2590; J2704; J3010; J3370; J3475; J3490; J7050; J7512

== ENCOUNTER 2022-09-08 19:38 | Emergency (ER) | payer OTHER ==
[2022-09-08] MEDS ORDERED: predniSONE 20 MG TAB ONE (20:28)
== END 2022-09-08 20:28 | disposition home or self-care (01) ==
LOC: CSHERS 19:38
DX: L88 Pyoderma gangrenosum (principal); I10 Essential (primary) hypertension; Z79.82 Long term (current) use of aspirin
CPT/HCPCS: J7512

== ENCOUNTER 2022-09-21 22:02 | Inpatient (IN) | payer OTHER ==
[2022-09-21] MEDS ORDERED: Lorazepam 2 MG/ML VIAL ONE ×4 (22:25→23:27)
[2022-09-21 22:42] LABS: Hemoglobin 13.1 g/dL (12.0-15.5); Mean Corpuscular Hemoglobin 29.3 pg (27.0-33.0); Mean Corpuscular Volume 88.8 fl (81.6-98.3); RBC Distribution Width 13.6 % (11.5-14.5); Red Blood Cell (RBC) Count 4.47 10x6/uL (3.90-5.03); White Blood Cell (WBC) Count 10.9 10x3/uL (3.5-10.5)
[2022-09-21 22:43] LABS: #Monocytes 0.3 10x3/uL (0.0-1.1); #Neutrophils 9.2 10x3/uL (1.5-8.4); %Basophils 0.3 % (0.0-2.0); %Eosinophils 0.1 % (0.0-6.0); %Lymphocytes 9.5 % (18.0-47.0); %Monocytes 2.9 % (0.0-10.0); %Neutrophils 85.2 % (40.0-75.0); Mean Platelet Volume 10.5 fl (7.4-10.4); Platelet Count 477 10x3/uL (150-450)
[2022-09-21] MEDS ORDERED: SODIUM CHLORIDE 0.9% IVPB SCH (23:00)
[2022-09-21] MEDS ORDERED: FOSPHENYTOIN SODIUM IVPB SCH (23:00)
[2022-09-21] MEDS ORDERED: Succinylcholine 200 MG/10 ml SYRINGE FS ONE (23:07)
[2022-09-21] MEDS ORDERED: PROPOFOL 20 ML ONE (23:07)
[2022-09-21] MEDS ORDERED: PHENYLEPHRINE-NS 100 MCG/ML 10 ML SYRINGE ONE (23:07)
[2022-09-21] MEDS ORDERED: Chloroprocaine 3% PF 20 ML VIAL ONE (23:19)
[2022-09-21] MEDS ORDERED: KETAMINE 100 MG/ML (5ML VIAL) ONE (23:26)
[2022-09-21] MEDS ORDERED: Oxytocin 10 UNITS/ML VIAL ONE (23:28)
[2022-09-21] MEDS ORDERED: CEFAZOLIN 1 GM VIAL ONE (23:28)
[2022-09-21] MEDS ORDERED: Propofol 1,000 MG/100 ML VIAL IV ONE (23:30)
[2022-09-21] MEDS ORDERED: Midazolam HCl 2 mg/2 ml Vial ONE (23:31)
[2022-09-22 00:03] LABS: ALT (SGPT) 15 U/L (8-55); AST (SGOT) 12 U/L (5-34); Albumin 4.2 g/dL (3.5-5.0); Alkaline Phosphatase 80 U/L (40-110); Anion Gap 19 mmol/L (10-20); BUN (Urea Nitrogen) 15 mg/dL (7.0-18.7); Bilirubin, Total 0.7 mg/dL (0.2-1.2); Calc. Creatinine Clearance 0 mL/min (70-130); Calcium 9.2 mg/dL (7.8-10.44); Carbon Dioxide 20 mmol/L (22-29); Chloride 106 mmol/L (98-107); Estimated GFR 106; Globulin 2.6 g/dL (2.4-3.5); Glucose 126 mg/dL (70-105); Potassium 3.9 mmol/L (3.5-5.1); Protein, Total 6.8 g/dL (6.0-8.3); Sodium 141 mmol/L (136-145)
[2022-09-22 00:11] VITALS: BMI 24.1
[2022-09-22] MEDS ORDERED: DISCONTINUE PREVIOUS NARCOTIC PAIN MEDICATIONS AND BENZODIAZEPINES FS SCH (00:15)
[2022-09-22] MEDS ORDERED: FENTANYL 2,000MCG/100-0.9%NACL 100 ML IVPB SCH (00:15)
[2022-09-22] MEDS ORDERED: Lorazepam 2 MG/ML VIAL SLOW IVP PRN (00:15)
[2022-09-22] MEDS ORDERED: Propofol BOLUS 1,000 MG/100 ML VIAL IV PRN (00:15)
[2022-09-22] MEDS ORDERED: Fentanyl BOLUS 250 ML IVPB PRN (00:15)
[2022-09-22] MEDS ORDERED: Morphine 2 MG/ML VIAL SLOW IVP PRN (00:15)
[2022-09-22] MEDS ORDERED: Ventilator Sedation Protocol FS SCH (00:15)
[2022-09-22] MEDS ORDERED: Propofol 1,000 MG/100 ML VIAL IV PRN (00:15)
[2022-09-22 00:16] LABS: Actual Bicarbonate (HCO3a) 24.4 mEq/L (22-28); Base Excess (BEa) 1.5 mEq/L (-2.0 to +3.0); CO2 Tension 32.8 mmHg (35.0-45.0); Calcium, Ionized (arterial) 1.18 mmol/L (1.12-1.30); Carboxyhemoglobin (COHb) 0.3 gm% (0.0-3.0); Hematocrit-ABG 36 % (36.0-47.0); Hemoglobin (Hb) 12.2 g/dL (12.0-16.0); O2 Tension (PaO2), arterial 133.7 mmHg (80.0-100.0); Potassium - ABG Lab 3.95 mmol/L (3.70-5.30); Puncture Site RRA; pH, Arterial 7.489 (7.35-7.45)
[2022-09-22] MEDS ORDERED: levETIRAcetam 500 MG/5 ML VIAL SLOW IVP SCH (09:00)
== END 2022-09-22 01:50 | disposition critical access hospital (66) | DRG 776 ==
LOC: CSHERS 22:02 → CSHLD/OP 22:07 → CSHLD 22:10 → CSHICU 09-22 00:13 → CSHLD 09-22 00:13 → CSHICU 09-22 00:32
PROVIDERS: ADMIT Student in an Organized Health Care Education/Training Program; ATTEND Student in an Organized Health Care Education/Training Program
PROC: 0BH17EZ Insertion of Endotracheal Airway into Trachea, Via Natural or Artificial Opening (ICD-10-PCS; principal; 2022-09-21)
PROC: 5A1935Z Respiratory Ventilation, Less than 24 Consecutive Hours (ICD-10-PCS; 2022-09-21)
PROC: 4A033R1 Measurement of Arterial Saturation, Peripheral, Percutaneous Approach (ICD-10-PCS; 2022-09-22)
DX: O99.355 Diseases of the nervous system complicating the puerperium (principal); L88 Pyoderma gangrenosum; O99.13 Other diseases of the blood and blood-forming organs and certain disorders involving the immune mechanism complicating the puerperium; D68.61 Antiphospholipid syndrome; O15.2 Eclampsia complicating the puerperium; G80.9 Cerebral palsy, unspecified; O99.73 Diseases of the skin and subcutaneous tissue complicating the puerperium; G40.901 Epilepsy, unspecified, not intractable, with status epilepticus; Z79.899 Other long term (current) drug therapy
CPT/HCPCS: 36415; 36416; 36600; 70450; 71045; 80053; 82805; 84550; 85025; 94002; 94762; 99285; J0690; J1953; J2060; J2250; J2401; J2590; J2704; J3490

== ENCOUNTER 2023-11-23 16:00 | Outpatient (CLI) | payer OTHER | END 2023-11-23 16:01 | disposition home or self-care (01) | LOC: CSHSLEEP 16:00 | PROVIDERS: ATTEND Student in an Organized Health Care Education/Training Program | DX: G47.33 Obstructive sleep apnea (adult) (pediatric) (principal); G47.9 Sleep disorder, unspecified; R53.83 Other fatigue; R51.9 Headache, unspecified; F32.A Depression, unspecified; E66.9 Obesity, unspecified; Z68.36 Body mass index [BMI] 36.0-36.9, adult; R06.83 Snoring; G47.00 Insomnia, unspecified; G47.10 Hypersomnia, unspecified | CPT/HCPCS: 95800 ==

== ENCOUNTER 2023-12-08 15:35 | Emergency (ER) | payer OTHER ==
[2023-12-08 17:51] LABS: Bilirubin Neg (Negative); Blood, Urine Negative (Negative); Clarity Slightly Cloudy (Clear); Glucose, Urine (Dipstick) Normal (Negative); Ketone, Urine 15 mg/dL (Negative); Leukocyte Negative (Negative); Nitrite Negative (Negative); Protein, Urine (Dipstick) 15 mg/dl (Neg-Trace)
[2023-12-08 18:40] LABS: Bacteria/HPF Rare-Few HPF (None Seen); CAUTI Indications for Culture Dysuria,urgency,freq; RBC/HPF None Seen HPF (0-3); WBC/HPF 0-3 HPF (0-3)
[2023-12-08 18:41] LABS: Mucous/LPF 1+ LPF (<2+); Urine Culture Reflex No No
== END 2023-12-08 19:08 | disposition home or self-care (01) ==
LOC: CSHERS 15:35
DX: J06.9 Acute upper respiratory infection, unspecified (principal); R30.0 Dysuria
CPT/HCPCS: 81001; 87081; 87428; 87430; 99283

== ENCOUNTER 2023-12-21 15:31 | Emergency (ER) | payer OTHER ==
[2023-12-21] MEDS ORDERED: Ondansetron PF 4 MG/2 ML Vial ONE (16:40)
[2023-12-21] MEDS ORDERED: Ketorolac Tromethamine 30 MG (1 mL) VIAL ONE (16:40)
[2023-12-21 17:19] LABS: BHCG - Serum Negative (NEGATIVE); Pregs Control Background? CLEAR/WHITE (CLR/WHITE); Pregs Control Bar Appear? YES (CONTROL BAR)
[2023-12-21 17:26] LABS: #Basophils 0.01 10x3/uL (0.0-0.2); #Eosinophils 0.17 10x3/uL (0.0-0.5); #Monocytes 0.41 10x3/uL (0.0-1.1); #Neutrophils 5.24 10x3/uL (1.5-8.4); %Basophils 0.1 % (0.0-2.0); %Eosinophils 2.2 % (0.0-6.0); %Lymphocytes 24.7 % (18.0-47.0); %Monocytes 5.3 % (0.0-10.0); %Neutrophils 67.3 % (40.0-75.0); Hematocrit 37.5 % (34.9-44.5); Hemoglobin 12.3 g/dL (12.0-15.5); Mean Corpuscular HGB CONC 32.8 g/dL (32.0-36.0); Mean Corpuscular Hemoglobin 27.2 pg (27.0-33.0); Mean Corpuscular Volume 82.8 fL (81.6-98.3); Mean Platelet Volume 11.5 fL (7.4-10.4); Platelet Count 235 10x3/uL (150-450); RBC Distribution Width 13.3 % (11.5-14.5); Red Blood Cell (RBC) Count 4.53 10x6/uL (3.90-5.03); White Blood Cell (WBC) Count 7.8 10x3/uL (3.5-10.5)
[2023-12-21 17:28] LABS: ALT (SGPT) 9 U/L (8-55); AST (SGOT) 13 U/L (5-34); Albumin 3.9 g/dL (3.5-5.0); Alkaline Phosphatase 67 U/L (40-110); Anion Gap 12 mmol/L (10-20); BUN (Urea Nitrogen) 10 mg/dL (7.0-18.7); Bilirubin, Total 0.5 mg/dL (0.2-1.2); Calc. Creatinine Clearance 0 mL/min (70-130); Calcium 9.4 mg/dL (7.8-10.44); Carbon Dioxide 22 mmol/L (22-29); Chloride 109 mmol/L (98-107); Estimated GFR 110; Globulin 2.7 g/dL (2.4-3.5); Glucose 81 mg/dL (70-105); Lipase 9 U/L (8-78); Magnesium 2.2 mg/dL (1.6-2.6); Potassium 4.2 mmol/L (3.5-5.1); Protein, Total 6.6 g/dL (6.0-8.3); Sodium 139 mmol/L (136-145)
[2023-12-21 17:31] LABS: Troponin I Less than 0.010 ng/mL (< 0.028)
[2023-12-21] MEDS ORDERED: Morphine 4 MG/ML VIAL ONE ×2 (18:06→19:45)
[2023-12-21] MEDS ORDERED: fentaNYL 50 mcg/mL 1 mL Vial ONE (18:45)
== END 2023-12-21 21:45 | disposition home or self-care (01) ==
LOC: CSHERS 15:31
DX: N83.201 Unspecified ovarian cyst, right side (principal)
CPT/HCPCS: 71045; 74177; 76856; 80053; 83690; 83735; 84484; 84703; 85025; 93005; 96374; 96375; 96376; J1885; J2272; J2405; J3010

== ENCOUNTER 2024-02-22 15:13 | Emergency (ER) | payer OTHER ==
[2024-02-22 16:55] LABS: Bilirubin Neg (Negative); Blood, Urine Negative (Negative); Clarity Slightly Cloudy (Clear); Glucose, Urine (Dipstick) Normal (Negative); Ketone, Urine Negative (Negative); Leukocyte Negative (Negative); Nitrite Negative (Negative); Protein, Urine (Dipstick) 15 mg/dl (Neg-Trace); Specific Gravity, Urine 1.015 (1.005-1.030); Urobilinogen Normal mg/dL (Less than 2)
[2024-02-22 17:00] LABS: Pregnancy Test - Urine (BHCG) Negative (Negative); Pregu Control Background? CLEAR/WHITE (CLR/WHITE); Pregu Control Bar Appear? YES (CONTROL BAR); Specific Gravity 1.015 (1.002-1.036)
[2024-02-22 17:08] LABS: Bacteria/HPF 2+ HPF (None Seen); CAUTI Indications for Culture Pelvic or flank pain; RBC/HPF 0-3 HPF (0-3); WBC/HPF 0-3 HPF (0-3)
[2024-02-22 17:09] LABS: Mucous/LPF 3+ LPF (<2+)
[2024-02-22 17:11] LABS: Urine Culture Reflex No No
[2024-02-22] MEDS ORDERED: Ondansetron PF 4 MG/2 ML Vial ONE (17:17)
[2024-02-22] MEDS ORDERED: fentaNYL 50 mcg/mL 1 mL Vial ONE (17:17)
[2024-02-22 17:21] LABS: #Basophils 0.02 10x3/uL (0.0-0.2); #Eosinophils 0.25 10x3/uL (0.0-0.5); #Monocytes 0.52 10x3/uL (0.0-1.1); #Neutrophils 4.44 10x3/uL (1.5-8.4); %Basophils 0.3 % (0.0-2.0); %Eosinophils 3.3 % (0.0-6.0); %Lymphocytes 31.1 % (18.0-47.0); %Monocytes 6.8 % (0.0-10.0); %Neutrophils 58.2 % (40.0-75.0); ALT (SGPT) 10 U/L (8-55); AST (SGOT) 14 U/L (5-34); Albumin 3.9 g/dL (3.5-5.0); Alkaline Phosphatase 73 U/L (40-110); Anion Gap 12 mmol/L (10-20); BUN (Urea Nitrogen) 10 mg/dL (7.0-18.7); Bilirubin, Total 0.4 mg/dL (0.2-1.2); Calc. Creatinine Clearance 0 mL/min (70-130); Calcium 9.2 mg/dL (7.8-10.44); Carbon Dioxide 21 mmol/L (22-29); Chloride 108 mmol/L (98-107); Estimated GFR 121; Globulin 3.1 g/dL (2.4-3.5); Glucose 82 mg/dL (70-105); Hematocrit 38.2 % (34.9-44.5); Hemoglobin 12.8 g/dL (12.0-15.5); Mean Corpuscular HGB CONC 33.5 g/dL (32.0-36.0); Mean Corpuscular Volume 83.6 fL (81.6-98.3); Mean Platelet Volume 11.4 fL (7.4-10.4); Platelet Count 249 10x3/uL (150-450); Potassium 3.9 mmol/L (3.5-5.1); Red Blood Cell (RBC) Count 4.57 10x6/uL (3.90-5.03); Sodium 137 mmol/L (136-145); White Blood Cell (WBC) Count 7.6 10x3/uL (3.5-10.5)
== END 2024-02-22 18:29 | disposition home or self-care (01) ==
LOC: CSHERS 15:13
DX: R10.31 Right lower quadrant pain (principal); R10.13 Epigastric pain
CPT/HCPCS: 74177; 80053; 81001; 81025; 85025; 93005; 96374; 96375; J2405; J3010

== ENCOUNTER 2024-03-15 16:41 | Emergency (ER) | payer OTHER ==
[2024-03-15] MEDS ORDERED: Ondansetron PF 4 MG/2 ML Vial ONE (18:24)
[2024-03-15] MEDS ORDERED: Ketorolac Tromethamine 30 MG (1 mL) VIAL ONE (18:24)
[2024-03-15 18:31] LABS: BHCG - Serum Negative (NEGATIVE); Pregs Control Background? CLEAR/WHITE (CLR/WHITE); Pregs Control Bar Appear? YES (CONTROL BAR)
[2024-03-15 18:37] LABS: #Basophils Less than 0.03 10x3/uL (0.0-0.2); #Eosinophils 0.17 10x3/uL (0.0-0.5); #Monocytes 0.31 10x3/uL (0.0-1.1); #Neutrophils 4.68 10x3/uL (1.5-8.4); %Basophils 0.3 % (0.0-2.0); %Eosinophils 2.4 % (0.0-6.0); %Lymphocytes 24.9 % (18.0-47.0); %Monocytes 4.5 % (0.0-10.0); %Neutrophils 67.5 % (40.0-75.0); Hematocrit 36.7 % (34.9-44.5); Hemoglobin 12.5 g/dL (12.0-15.5); Mean Corpuscular HGB CONC 34.1 g/dL (32.0-36.0); Mean Corpuscular Hemoglobin 28.3 pg (27.0-33.0); Mean Corpuscular Volume 83.2 fL (81.6-98.3); Mean Platelet Volume 11.2 fL (7.4-10.4); Platelet Count 289 10x3/uL (150-450); RBC Distribution Width 13.9 % (11.5-14.5); Red Blood Cell (RBC) Count 4.41 10x6/uL (3.90-5.03); White Blood Cell (WBC) Count 6.94 10x3/uL (3.5-10.5)
[2024-03-15 18:38] LABS: ALT (SGPT) 14 U/L (8-55); AST (SGOT) 19 U/L (5-34); Albumin 3.7 g/dL (3.5-5.0); Alkaline Phosphatase 89 U/L (40-110); Anion Gap 12 mmol/L (10-20); BUN (Urea Nitrogen) 13 mg/dL (7.0-18.7); Bilirubin, Total 0.4 mg/dL (0.2-1.2); Calc. Creatinine Clearance 0 mL/min (70-130); Carbon Dioxide 21 mmol/L (22-29); Chloride 111 mmol/L (98-107); Estimated GFR 117; Globulin 3.2 g/dL (2.4-3.5); Glucose 79 mg/dL (70-105); Protein, Total 6.9 g/dL (6.0-8.3); Sodium 140 mmol/L (136-145)
[2024-03-15] MEDS ORDERED: fentaNYL 50 mcg/mL 1 mL Vial ONE (19:54)
== END 2024-03-15 20:26 | disposition home or self-care (01) ==
LOC: CSHERS 16:41
DX: N83.201 Unspecified ovarian cyst, right side (principal)
CPT/HCPCS: 36415; 76856; 80053; 84703; 85025; 96374; 96375; J1885; J2405; J3010

== ENCOUNTER 2024-04-08 22:17 | Emergency (ER) | payer OTHER ==
[2024-04-08] MEDS ORDERED: cloNIDine 0.1 MG TAB ONE (22:34)
[2024-04-08] MEDS ORDERED: Meclizine HCl 25 MG TAB ONE (22:34)
[2024-04-08] MEDS ORDERED: Lidocaine 1% PF 5 ML VIAL ONE (22:45)
[2024-04-09] MEDS ORDERED: HYDROcodone/Acetaminophen 5/325 mg Tablet ONE (00:20)
== END 2024-04-08 23:41 | disposition home or self-care (01) ==
LOC: CSHERS 22:17
DX: K04.7 Periapical abscess without sinus (principal); I10 Essential (primary) hypertension; R42 Dizziness and giddiness; F41.8 Other specified anxiety disorders
CPT/HCPCS: 99283

== ENCOUNTER 2024-10-08 16:20 | Emergency (ER) | payer OTHER ==
[2024-10-08] MEDS ORDERED: predniSONE 20 MG TAB ONE (18:30)
== END 2024-10-08 18:33 | disposition home or self-care (01) ==
LOC: CSHERS 16:20
DX: L88 Pyoderma gangrenosum (principal)
CPT/HCPCS: 99282; J7512

== ENCOUNTER 2024-10-09 13:40 | Outpatient (CLI) | payer OTHER | END 2024-10-09 13:41 | disposition home or self-care (01) | LOC: CSHMAMMO 13:40 | PROVIDERS: ATTEND Family Medicine | DX: Z12.31 Encounter for screening mammogram for malignant neoplasm of breast (principal); Z80.3 Family history of malignant neoplasm of breast | CPT/HCPCS: 77067 ==